=== PATIENT | female | born 2000 | race American Indian/Alaskan Native ===

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

== ENCOUNTER 2024-07-31 16:40 | Emergency (ER) | payer BC ==
[2024-07-31] MEDS ORDERED: Sodium Chloride 0.9% 10 ML Syringe FLUSH PRN (16:45)
[2024-07-31] MEDS: Iopamidol 755 Mg/ML 100 ML Bottle IVPUSH ONE (17:40)
[2024-07-31 19:18] VITALS: BP 116/80; PULSE 82
== END 2024-07-31 19:15 | disposition home or self-care (01) ==
LOC: DL.ED 16:40
DX: R07.9 Chest pain, unspecified (principal)
CPT/HCPCS: 71275; 81025; 99285; Q9967

== ENCOUNTER 2025-07-02 07:13 | Emergency (ER) | payer BC ==
[2025-07-02 07:52] LABS: APPEARANCE,URINE CLEAR (CLEAR); GLUCOSE,URINE NEGATIVE (NEGATIVE); OCCULT BLOOD,URINE NEGATIVE (NEGATIVE)
[2025-07-02] MEDS ORDERED: Sodium Chloride 0.9% 10 ML Syringe FLUSH PRN (08:00)
[2025-07-02] MEDS: Ketorolac 30 MG/ML SDV IVPUSH ONE (08:29)
[2025-07-02 11:07] VITALS: BP 150/99; PULSE 68
== END 2025-07-02 11:12 | disposition home or self-care (01) ==
LOC: DL.ED 07:13
DX: M54.41 Lumbago with sciatica, right side (principal)
CPT/HCPCS: 81003; 81025; 96374; 99283; 99283-25; A9270-GY; J1885